=== PATIENT | male | born 1960 | race American Indian/Alaskan Native ===

== ENCOUNTER 2022-01-02 17:57 | Emergency (ER) | payer MEDICARE, MEDICAID ==
[2022-01-02] MEDS ORDERED: oxyCODONE /ACETAMINOPHEN 5-325MG TAB PO ONE (23:16)
[2022-01-02] MEDS ORDERED: KETOROLAC 30 MG/1 ML INJ IM ONE (23:16)
[2022-01-02] MEDS ORDERED: ONDANSETRON 4 MG ODT TAB PO ONE (23:17)
--- NOTE | 2022-01-02 23:40 | Emergency Department Report ---
ED General Adult HPI - General Chief complaint: Skin Rash Stated complaint: RASH Source: patient Mode of arrival: Ambulatory Limitations: No Limitations - History of Present Illness Initial comments: Patient is a 61-year-old -Romanian male with no past medical history presents to the ED with complaint of acute onset persistent painful itchy erythematous maculopapular rash on right posterior thoracic area that radiating to the right chest wall for the last 3 days. Patient states that he has not been able to sleep because of worsening pain. Patient describes the pain as burning, itching and sharp. Patient denies dizziness, syncope, traumatic injury, fever, chills, nausea and vomiting, chest pain or shortness of breath, cough, neck pain, headache or abdominal pain. MD Complaint: Painful erythematous maculopapular rash -: Sudden, days(s) (3) Location: chest, back Radiation: back, flank Severity scale (0 -10): 8 Quality: aching, sharp Consistency: constant Improves with: none Worsens with: none Associated Symptoms: denies other symptoms, rash (Swollen, painful, erythematous maculopapular vesicular rashes on right mid posterior thoracic area radiating to the right chest wall). denies: confusion, chest pain, cough, diaphoresis, fever/chills, loss of appetite, malaise, seizure - Related Data Previous Rx's Medication Instructions Recorded Last Taken Type Gabapentin 300 mg PO Q8H #30 cap 01/02/22 Unknown Rx Ibuprofen [Motrin] 800 mg PO Q8HR PRN #30 tablet 01/02/22 Unknown Rx Valacyclovir HCl [Valacyclovir] 1,000 mg PO Q8H #30 01/02/22 Unknown Rx oxyCODONE /ACETAMINOPHEN [Percocet 1 tab PO Q6HR PRN #12 tablet 01/02/22 Unknown Rx 5/325] Allergies Allergy/AdvReac Type Severity Reaction Status Date / Time No Known Allergies Allergy Unverified 01/02/22 18:26 ED Review of Systems ROS: Stated complaint: RASH Other details as noted in HPI Constitutional: denies: chills, fever Eyes: denies: eye pain, eye discharge, vision change ENT: denies: ear pain, throat pain Respiratory: denies: cough, shortness of breath, wheezing Cardiovascular: denies: chest pain, palpitations Endocrine: no symptoms reported Gastrointestinal: denies: abdominal pain, nausea, vomiting, diarrhea Genitourinary: denies: urgency, dysuria Musculoskeletal: denies: back pain, joint swelling, arthralgia Skin: rash (Erythematous maculopapular vesicular painful rashes on posterior right mid thoracic area spreading dermatomally to the right chest wall), change in color, pruritus. denies: lesions Neurological: denies: headache, weakness, paresthesias Psychiatric: denies: anxiety, depression Hematological/Lymphatic: denies: easy bleeding, easy bruising ED Past Medical Hx - Medications Home Medications: Home Medications Medication Instructions Recorded Confirmed Last Taken Type Gabapentin 300 mg PO Q8H #30 cap 01/02/22 Unknown Rx Ibuprofen [Motrin] 800 mg PO Q8HR PRN #30 tablet 01/02/22 Unknown Rx Valacyclovir HCl [Valacyclovir] 1,000 mg PO Q8H #30 01/02/22 Unknown Rx oxyCODONE /ACETAMINOPHEN [Percocet 1 tab PO Q6HR PRN #12 tablet 01/02/22 Unknown Rx 5/325] ED Physical Exam - General Limitations: No Limitations General appearance: alert, in no apparent distress - Head Head exam: Present: atraumatic, normocephalic, normal inspection - Eye Eye exam: Present: normal appearance, PERRL, EOMI Pupils: Present: normal accommodation - ENT ENT exam: Present: normal exam, normal orophraynx, mucous membranes moist, TM's normal bilaterally, normal external ear exam - Neck Neck exam: Present: normal inspection, full ROM. Absent: tenderness - Respiratory Respiratory exam: Present: normal lung sounds bilaterally. Absent: respiratory distress, wheezes, rales, rhonchi, chest wall tenderness, accessory muscle use, prolonged expiratory - Cardiovascular Cardiovascular Exam: Present: regular rate, normal rhythm, normal heart sounds. Absent: bradycardia, systolic murmur, diastolic murmur, rubs, gallop - GI/Abdominal GI/Abdominal exam: Present: soft, normal bowel sounds. Absent: tenderness, guarding, rigid, hyperactive bowel sounds, hypoactive bowel sounds, organomegaly, bruit, pulsatile mass - Extremities Exam Extremities exam: Present: normal inspection, full ROM, normal capillary refill. Absent: tenderness, pedal edema, joint swelling, calf tenderness - Back Exam Back exam: Present: normal inspection, full ROM. Absent: tenderness, CVA tenderness (R), CVA tenderness (L), muscle spasm, paraspinal tenderness, vertebral tenderness - Neurological Exam Neurological exam: Present: alert, oriented X3, CN II-XII intact, normal gait, reflexes normal - Psychiatric Psychiatric exam: Present: normal affect, normal mood, anxious - Skin Skin exam: Present: warm, dry, intact, rash (Erythematous maculopapular vesicular dermatomal rash on right posterior thoracic area that radiates to the right chest wall), erythema, vesicles. Absent: normal color, cyanosis, diaphoretic, urticaria, petechiae, pallor, abrasion, ecchymosis ED Course Vital Signs 01/02/22 01/03/22 18:28 00:24 Temperature 98.7 F 97.9 F Pulse Rate 66 62 Respiratory 18 18 Rate Blood Pressure 132/97 122/73 [Right] O2 Sat by Pulse 99 98 Oximetry ED Medical Decision Making - Medical Decision Making This is a 61-year-old -Romanian male with no past medical history presents to the ED with complaint of acute onset persistent painful itchy erythematous maculopapular rash on right posterior thoracic area that radiating to the right chest wall for the last 3 days. Patient states that he has not been able to sleep because of worsening pain. Patient describes the pain as burning, itching and sharp. In the ED, patient is alert and oriented x3 and is not in distress. Patient is hemodynamically stable. Patient appears to be in pain. Physical exam is positive for erythematous maculopapular vesicular tender rashes on right posterior thoracic area that dermatomally radiates to the right chest wall. Based on the history and physical exam findings, the patient symptoms are likely due to shingles outbreak. Patient was treated for pain in the ED and on reevaluation, patient's pain is well controlled medication. Patient will discharge home on pain medications and a prescription of valacyclovir and advised to follow-up with his primary care physician in 5 to 7 days for reevaluation or return to the ED immediately if symptoms get worse. - Differential Diagnosis Shingles; Cellulitis; Irritant dermatitis Critical care attestation.: If time is entered above; I have spent that time in minutes in the direct care of this critically ill patient, excluding procedure time. ED Disposition Clinical Impression: Shingles outbreak Qualifiers: Herpes zoster complications: without complications Qualified Code(s): B02.9 - Zoster without complications Disposition: 01 HOME / SELF CARE / HOMELESS Is pt being admited?: No Does the pt Need Aspirin: No Condition: Stable Instructions: Shingles, [id number], Neuropathic Pain Additional Instructions: Your symptoms are due to shingles outbreak. Therefore take medication with food, drink plenty of fluids and follow-up with your primary care physician in 7 to 10 days for reevaluation. Return to the ED immediately if symptoms get worse. Prescriptions: Gabapentin 300 mg PO Q8H #30 cap Ibuprofen [Motrin] 800 mg PO Q8HR PRN #30 tablet PRN Reason: Pain , Severe (7-10) oxyCODONE /ACETAMINOPHEN [Percocet 5/325] 1 tab PO Q6HR PRN #12 tablet PRN Reason: Pain Valacyclovir HCl [Valacyclovir] 1,000 mg PO Q8H #30 Referrals: [facility] [Provider Group] - 3-5 Days Time of Disposition: 23:41 Print Language: FAROESE
[2022-01-03 00:35] VITALS: BP 122/73
== END 2022-01-03 00:24 | disposition home or self-care (01) ==
LOC: ED 17:57
DX: B02.9 Zoster without complications (principal)
CPT/HCPCS: 96372; 99282; J1885; J3490; Q0162